=== PATIENT | male | born 1970 | race Caucasian/White ===

== ENCOUNTER 2019-08-25 06:57 | Day surgery (SDC) | payer BC ==
[2019-08-22 11:47] LABS: Absolute Lymphocytes (CBC) 1.8 K/uL (0.7-4.9); Basophils % 0.7 % (0-1.3); Hematocrit 46.7 % (39.6-49.0); Lymphocytes % 34.1 % (15.3-44.8); MPV 9.3 fL (7.6-11.3); RBC Red Blood Cell Count 5.08 M/uL (4.33-5.43)
[2019-08-22 11:50] LABS: Protime INR 0.88
[2019-08-22 11:53] LABS: Potassium 4.2 mmol/L (3.5-5.1)
--- NOTE | 2019-08-22 11:53 | RAD REPORT ---
EXAM DESCRIPTION: RAD - Chest Pa And Lat (2 Views) - 08/22/2019 11:38 am CLINICAL HISTORY: preop Chest pain. COMPARISON: CHEST PA AND LAT 2 VIEW dated 01/12/2011 FINDINGS: The lungs are clear. The heart is upper limit of normal in size. No displaced fractures. IMPRESSION: No acute or concerning finding suspected.
[2019-08-25] MEDS ORDERED: FENTANYL CITR 100 MCG/2 ML ONE ×2 (07:16→11:15)
[2019-08-25] MEDS ORDERED: HEPA 1000U/500MLS 2,000 UNIT/1,000 ML BAG IV ONE (07:16)
[2019-08-25] MEDS ORDERED: HEPARIN 5000 UNIT/ML 1 ML VIAL ONE (07:16)
[2019-08-25] MEDS ORDERED: NICARDIPINE HCL 25 MG/10 ML IV ONE (07:16)
[2019-08-25] MEDS ORDERED: MIDAZOLAM HCL 2 MG/2 ML INJ ONE ×3 (07:16→11:15)
[2019-08-25] MEDS ORDERED: LIDOCAINE 1% 20 ML MDV ONE (07:16)
[2019-08-25] MEDS ORDERED: NITROGLYCERIN 100 MCG/ML SYR (for cath lab use only) IV ONE (07:17)
[2019-08-25] MEDS ORDERED: NITROGLYCERIN/D5W 25 MG/250 ML BTL IV ONE (07:17)
[2019-08-25] MEDS ORDERED: NA CHLORIDE 0.9% 0 ML ONE (07:18)
[2019-08-25] MEDS ORDERED: ATROPINE SULF 1 MG/10 ML SYR IV ONE (07:18)
[2019-08-25] MEDS ORDERED: NA CHLORIDE 0.9% 500 ML ONE (07:29)
[2019-08-25 09:30] VITALS: TEMP 97.2
[2019-08-25 14:12] VITALS: BP 155/103; O2SAT 98
--- NOTE | 2019-08-25 18:46 | OP ---
Surgeon: Juanjo Fischer MD Identification: A 49-year-old man. Procedure: Left heart catheterization with coronary and left ventricular angiography. Procedure Findings: The patient has normal coronary arteries. Normal left ventricular ejection frac tion. Normal wall motion. Normal pressures. So, he has noncardiac chest pain, non-coronary chest p ain. Procedure In Detail: The patient was brought to the cardiac cath lab radiology technician in fasting, sedated with Versed and fentanyl. Right radial approach was used. Right radial artery was entered using a 21-gauge nee dle and cannulated with a 0.021 inch diameter guidewire and modified Seldinger technique was followed to place a 5/6-Turk[place] Terumo radial sheath. The wire and introducer were removed. The sheath was f lushed. A radial cocktail was given consisting of heparin, nitroglycerin, and nicardipine. A TIG ca theter was guided into the ascending aorta using a Glidewire and fluoroscopy. The same catheter was used to angiogram the right and left coronary, left ventricle. At the end of the procedure, the cath eter was withdrawn from the body over a wire to keep it straight. Pressure was then measured through the sheath to demonstrate patency of the brachial and radial arteries and this was normal and the sh eath was flushed and removed and the arteriotomy closed with a TR band. Estimated Blood Loss: 5 mL. Hall Worker: Ricardo Padilla. Complications: None. SH/MODL Voice ID: [id number] Report ID: [id number]
== END 2019-08-25 15:30 | disposition home or self-care (01) ==
LOC: CCL 06:57
PROVIDERS: ATTEND Internal Medicine
DX: R07.89 Other chest pain (principal); I10 Essential (primary) hypertension; Z88.1 Allergy status to other antibiotic agents; Z88.8 Allergy status to other drugs, medicaments and biological substances
CPT/HCPCS: 85025; 80048; 36415; 85610; 85730; 71046; 93458; C1893; J1644; J2250 ×3; J3010 ×2; J7040; J0583